=== PATIENT | male | born 1985 | race American Indian/Alaskan Native ===

== ENCOUNTER 2019-02-09 18:25 | Emergency (ER) | payer OTHER ==
[2019-02-09] MEDS ORDERED: ULTRAM PO ONE (21:30)
--- NOTE | 2019-02-09 21:45 | Emergency Department Report ---
ED ENT HPI - General Chief complaint: Dental/Oral Stated complaint: TOOTHACHE Time Seen by Provider: 02/09/19 21:30 Source: patient Mode of arrival: Ambulatory Limitations: No Limitations - History of Present Illness Initial comments: Patient is an -[place] male who presents for dental pain patient has history of chronic dental caries primarily to number 20 there is no guarding or facial swelling or ear pain no fever chills patient is tolerating by mouth intake MD complaint: tooth pain Onset/Timin -: week(s) Location: tooth # (20) Severity: moderate Severity scale (0 -10): 5 Quality: aching Consistency: constant Improves with: none Worsens with: eating Context- Dental: history of dental caries, poor dental care Associated Symptoms: toothache. denies: gum swelling, pain with swallowing, sore throat, tinnitus - Related Data Previous Rx's Medication Instructions Recorded Last Taken Type Amoxicillin [Trimox CAP] 500 mg PO Q8H 10 Days #30 capsule 02/09/19 Unknown Rx Chlorhexidine Mouthwash [Peridex] 15 ml MM BID #1 bottle 02/09/19 Unknown Rx traMADol [Ultram] 50 mg PO Q6HR PRN #12 tablet 02/09/19 Unknown Rx Allergies Allergy/AdvReac Type Severity Reaction Status Date / Time No Known Allergies Allergy Unverified 02/09/19 18:25 ED Dental HPI - General Chief complaint: Dental/Oral Stated complaint: TOOTHACHE Time Seen by Provider: 02/09/19 21:30 Source: patient Mode of arrival: Ambulatory Limitations: No Limitations - Related Data Previous Rx's Medication Instructions Recorded Last Taken Type Amoxicillin [Trimox CAP] 500 mg PO Q8H 10 Days #30 capsule 02/09/19 Unknown Rx Chlorhexidine Mouthwash [Peridex] 15 ml MM BID #1 bottle 02/09/19 Unknown Rx traMADol [Ultram] 50 mg PO Q6HR PRN #12 tablet 02/09/19 Unknown Rx Allergies Allergy/AdvReac Type Severity Reaction Status Date / Time No Known Allergies Allergy Unverified 02/09/19 18:25 ED Review of Systems ROS: Stated complaint: TOOTHACHE Other details as noted in HPI Constitutional: denies: chills, fever Eyes: denies: eye pain, eye discharge, vision change ENT: dental pain. denies: ear pain, throat pain, congestion Respiratory: denies: cough, shortness of breath, wheezing Cardiovascular: denies: chest pain, palpitations Endocrine: no symptoms reported Gastrointestinal: denies: abdominal pain, nausea, diarrhea Genitourinary: denies: urgency, dysuria Musculoskeletal: denies: back pain, joint swelling, arthralgia Skin: denies: rash, lesions Neurological: denies: headache, weakness, paresthesias Psychiatric: denies: anxiety, depression Hematological/Lymphatic: denies: easy bleeding, easy bruising ED Past Medical Hx - Past Medical History Previous Medical History?: No - Surgical History Past Surgical History?: No - Social History Smoking Status: Current Every Day Smoker - Medications Home Medications: Home Medications Medication Instructions Recorded Confirmed Last Taken Type Amoxicillin [Trimox CAP] 500 mg PO Q8H 10 Days #30 capsule 02/09/19 Unknown Rx Chlorhexidine Mouthwash [Peridex] 15 ml MM BID #1 bottle 02/09/19 Unknown Rx traMADol [Ultram] 50 mg PO Q6HR PRN #12 tablet 02/09/19 Unknown Rx ED Physical Exam - General Limitations: No Limitations General appearance: alert, in no apparent distress - Head Head exam: Present: atraumatic, normocephalic - Eye Eye exam: Present: normal appearance, PERRL, EOMI Pupils: Present: normal accommodation - ENT ENT exam: Present: mucous membranes moist. Absent: TM's normal bilaterally, normal external ear exam - Expanded ENT Exam Expanded Ear exam: Present: normal external inspection Mouth exam: Absent: trismus Teeth exam: Present: dental caries, dental tenderness # (no focal abscess ). Absent: gingival enlargement Throat exam: Negative: tonsillar erythema, tonsillomegaly, tonsillar exudate, R peritonsillar mass, L peritonsillar mass - Neck Neck exam: Present: normal inspection - Respiratory Respiratory exam: Present: normal lung sounds bilaterally. Absent: respiratory distress - Cardiovascular Cardiovascular Exam: Present: regular rate, normal rhythm. Absent: systolic murmur, diastolic murmur, rubs, gallop - GI/Abdominal GI/Abdominal exam: Present: soft, normal bowel sounds - Rectal Rectal exam: Present: deferred - Extremities Exam Extremities exam: Present: normal inspection - Back Exam Back exam: Present: normal inspection, full ROM. Absent: tenderness, CVA tenderness (R), CVA tenderness (L), rash noted - Neurological Exam Neurological exam: Present: alert, oriented X3, CN II-XII intact. Absent: normal gait, reflexes normal - Psychiatric Psychiatric exam: Present: normal affect, normal mood - Skin Skin exam: Present: warm, dry, intact, normal color. Absent: rash ED Course Vital Signs 02/09/19 18:28 Temperature 97.9 F Pulse Rate 94 H Respiratory 18 Rate Blood Pressure 110/62 O2 Sat by Pulse 100 Oximetry ED Medical Decision Making - Medical Decision Making this is straight forward infected dental carries plan: amoxicillin , ultram, peridex follow up with dentist givern referral to same in 2 days pt verbalized agreement and understanding of discharge plan. Critical care attestation.: If time is entered above; I have spent that time in minutes in the direct care of this critically ill patient, excluding procedure time. ED Disposition Clinical Impression: Infected dental carries Disposition: - TO HOME OR SELFCARE Is pt being admited?: No Does the pt Need Aspirin: No Condition: Stable Instructions: Dental Caries (ED) Prescriptions: Chlorhexidine Mouthwash [Peridex] 15 ml MM BID #1 bottle Amoxicillin [Trimox CAP] 500 mg PO Q8H 10 Days #30 capsule traMADol [Ultram] 50 mg PO Q6HR PRN #12 tablet PRN Reason: Pain Referrals: [facility] [Outside] - 3-5 Days Forms: Work/School Release Form(ED) Time of Disposition: 21:47
[2019-02-09 22:09] VITALS: BP 123/67
== END 2019-02-09 22:09 | disposition home or self-care (01) ==
LOC: ED 18:25
DX: K02.9 Dental caries, unspecified (principal); F17.200 Nicotine dependence, unspecified, uncomplicated
CPT/HCPCS: 99282